=== PATIENT | female | born 1975 | race Caucasian/White ===

== ENCOUNTER 2022-02-20 05:00 | Day surgery (SDC) | payer OTHER ==
[~2022-02-20] VITALS: Ht 157.5 cm; Wt 86.2 kg
[~2022-02-20 05:00] MED LIST: CALCIO; TAMOXIFEN CITRA20 MG
== END 2022-02-20 15:30 | disposition home or self-care (01) ==
LOC: CIR.AMB 05:00
PROVIDERS: ATTEND Plastic Surgery
DX: Z42.1 Encounter for breast reconstruction following mastectomy (principal); Z90.11 Acquired absence of right breast and nipple; Z20.822 Contact with and (suspected) exposure to COVID-19; Z86.16 Personal history of COVID-19; D05.11 Intraductal carcinoma in situ of right breast
CPT/HCPCS: 19342; L8699

== ENCOUNTER 2022-08-07 05:15 | Day surgery (SDC) | payer OTHER ==
[~2022-08-07] VITALS: Ht 157.5 cm; Wt 86.2 kg
[~2022-08-07 05:15] MED LIST changes: +IRON PO; +VITAMIN D PO
== END 2022-08-07 17:20 | disposition home or self-care (01) ==
LOC: CIR.AMB 05:15
PROVIDERS: ATTEND Plastic Surgery
DX: Z90.11 Acquired absence of right breast and nipple (principal); N64.89 Other specified disorders of breast; N65.1 Disproportion of reconstructed breast; R92.0 Mammographic microcalcification found on diagnostic imaging of breast; Z88.2 Allergy status to sulfonamides; Z20.822 Contact with and (suspected) exposure to COVID-19; F12.90 Cannabis use, unspecified, uncomplicated